=== PATIENT | male | born 1970 | race Caucasian/White ===

== ENCOUNTER → 2017-10-26 12:10 | Outpatient (POV) | payer SELFPAY | PROVIDERS: Visit Provider Dentist | DX: Z00.00 Encounter for general adult medical examination without abnormal findings (principal) ==

== ENCOUNTER → 2017-11-23 08:58 | Outpatient (POV) | payer OTHER, SELFPAY | PROVIDERS: Visit Provider Dentist | DX: Z00.00 Encounter for general adult medical examination without abnormal findings (principal) ==